=== PATIENT | male | born 1975 | race African-American/Black ===

== ENCOUNTER 2022-03-02 10:30 | Inpatient (IN) | payer BC ==
[2022-03-02 11:12] VITALS: BMI 21.9
[2022-03-02] MEDS ORDERED: BENZOCAINE/MENTHOL (CHLORASEPTIC ) LOZENGE MM PRN (12:28)
[2022-03-02] MEDS ORDERED: DICYCLOMINE HCL 10 MG CAPSULE PO PRN (12:28)
[2022-03-02] MEDS ORDERED: ONDANSETRON *ODT* 4 MG TABLET SL PRN (12:28)
[2022-03-02] MEDS ORDERED: MAGNESIUM CITRATE 300 ML BOTTLE PO PRN (12:28)
[2022-03-02] MEDS ORDERED: MAGNESIUM HYDROX 2400MG/30ML ORAL SUSPENSION 30 ML CUP PO PRN (12:28)
[2022-03-02] MEDS ORDERED: MAG HYDROX/AL HYDROX/SIMETH 30 ML UNIT-DOSE CUP PO PRN (12:28)
[2022-03-02] MEDS ORDERED: IBUPROFEN 600 MG TABLET (FP) PO PRN (12:28)
[2022-03-02] MEDS ORDERED: METHOCARBAMOL 500 MG TABLET PO PRN (12:28)
[2022-03-02] MEDS ORDERED: BISMUTH SUBSALICYLATE 262 MG/15 ML BTL PO PRN (12:28)
[2022-03-02] MEDS ORDERED: IBUPROFEN 400 MG TABLET (FP) PO PRN (12:28)
[2022-03-02] MEDS ORDERED: LOPERAMIDE HCL 2 MG CAPSULE PO PRN (12:28)
[2022-03-02] MEDS ORDERED: ACETAMINOPHEN 325 MG TABLET (FP) PO PRN ×2 (12:28)
[2022-03-02] MEDS ORDERED: INSULIN (NOVOLOG) ASPART 100 UNITS/ML 10ML VIAL SQ ONE (12:35)
[2022-03-02] MEDS ORDERED: INSULIN (NOVOLOG) ASPART 100 UNITS/ML 10ML VIAL ONE (12:42)
[2022-03-02] MEDS: hydrOXYzine PAMOATE 25 MG CAPSULE (FP) PO SCH ×3 (17:47→22:36)
[2022-03-02] MEDS: INSULIN SLIDING SCALE (NOVOLOG) 1 VIAL SQ SCH ×2 (17:49→23:16)
[2022-03-02] MEDS ORDERED: MELATONIN 5 MG TABLETS PO SCH (22:00)
[2022-03-02] MEDS ORDERED: THIAMINE HCL 100 MG TABLET (FP) PO SCH (22:00)
[2022-03-03] MEDS ORDERED: INSULIN SLIDING SCALE (NOVOLOG) 1 VIAL SQ ONE ×2 (04:55→07:21)
[2022-03-03] MEDS: hydrOXYzine PAMOATE 25 MG CAPSULE (FP) PO SCH ×2 (06:05→10:35)
[2022-03-03] MEDS: INSULIN SLIDING SCALE (NOVOLOG) 1 VIAL SQ SCH ×2 (07:02→12:06)
[2022-03-03 09:09] VITALS: BP 140/88; PULSE 80; TEMP 97.3
[2022-03-03] MEDS ORDERED: PRENATAL VITAMINS W/ FOLIC ACID TABLET (FP) PO SCH (10:00)
[2022-03-03 12:26] LABS: HEMATOCRIT 37.1 % (35.4-49); HEMOGLOBIN 12.2 GM/dL (11.7-16.9); MCH 30.2 pg (25.7-33.7); MCHC 32.8 g/dl (32.0-35.9); MEAN PLT VOLUME 9.7 fl (7.5-11.1); PLATELET COUNT 191 10^3/uL (134-434); RBC 4.04 M/mm3 (4.00-5.60); RDW 14.3 % (11.9-15.9); WHITE BLOOD COUNT 8.3 K/mm3 (4.0-10.0)
[2022-03-03 12:39] LABS: CALCIUM 9.4 mg/dL (8.5-10.1)
[2022-03-03 12:40] LABS: ALBUMIN 3.2 g/dl (3.4-5.0); BLOOD UREA NITROGEN 12.6 mg/dL (7-18)
[2022-03-03 12:43] LABS: CREATININE 0.8 mg/dL (0.55-1.3)
[2022-03-03 12:45] LABS: BILIRUBIN,TOTAL 0.6 mg/dL (0.2-1); TOT PROT 6.4 g/dl (6.4-8.2)
== END 2022-03-03 12:24 | disposition home or self-care (01) | DRG 775 ==
LOC: YASAS 10:30 → Y3N 13:57
PROVIDERS: ADMIT Allergy & Immunology; ATTEND Surgery
PROC: HZ2ZZZZ Detoxification Services for Substance Abuse Treatment (ICD-10-PCS; principal; 2022-03-02)
DX: F10.230 Alcohol dependence with withdrawal, uncomplicated (principal); F12.20 Cannabis dependence, uncomplicated; E11.65 Type 2 diabetes mellitus with hyperglycemia; Z79.4 Long term (current) use of insulin; Z87.891 Personal history of nicotine dependence
CPT/HCPCS: 36415; 80053; 82962; 83036; 85027; 86780; 87811; 93005; 93010; C9803-CS; U0003; U0005